=== PATIENT | male | born 1965 | race Caucasian/White ===

== ENCOUNTER 2021-03-29 10:57 | Emergency (ER) | payer BC ==
[~2021-03-29] VITALS: Ht 172.7 cm; Wt 83.9 kg
[2021-03-29] MEDS ORDERED: ELIQUIS5 MG PO (11:30)
[2021-03-29] MEDS ORDERED: CHLORTHALIDONE25 MG PO (11:30)
--- NOTE | 2021-03-31 13:47 | EKG ---
[facility] [address] [facility] [place], [place] [address] Signed Normal sinus rhythm Nonspecific intraventricular conduction delay Borderline ECG No previous ECGs available Confirmed by URMILA PEDERSON DO ([id number]) on 03/31/2021 1:47:28 PM Electronically Signed By: URMILA PEDERSON DO 03/31/21 1347 PATIENT NAME: CATE WATERS Electrocardiogram DATE OF : 63 PHYSICIAN: URMILA PEDERSON DO REPORT #: [id number] REPORT IS CONFIDENTIAL AND NOT TO BE RELEASED WITHOUT AUTHORIZATION
== END 2021-03-29 12:45 | disposition home or self-care (01) ==
LOC: ED 10:57
DX: R10.13 Epigastric pain (principal); H53.9 Unspecified visual disturbance; I10 Essential (primary) hypertension; Z79.899 Other long term (current) drug therapy; Z85.46 Personal history of malignant neoplasm of prostate
CPT/HCPCS: 71046; 80053; 83735; 84484; 85025; 85610; 93005; 93010; 99284-25

== ENCOUNTER 2024-01-08 21:17 | Emergency (ER) | payer BC ==
[~2024-01-08] VITALS: Ht 175.3 cm; Wt 87.5 kg
[~2024-01-08 21:17] MED LIST: CHLORTHALIDONE25 MG PO; ELIQUIS5 MG PO
[2024-01-08] MEDS ORDERED: ASPIRIN 81 MG CHEW PO ONE (21:30)
[2024-01-08] MEDS ORDERED: NITROGLYCERIN 0.4 MG SUBL SL PRN (21:30)
[2024-01-08 21:34] LABS: BASOPHILS 1.2 % (0-2); EOSINOPHILS 2.4 % (0-6); HEMATOCRIT 47.4 % (35.0-50.0); HEMOGLOBIN 16.1 g/dL (12.0-18.0); LYMPHOCYTES 42.6 % (24-44); MCH 31.8 (27-36); MCV 93.4 fl (81-99); MONOCYTES 7.7 % (0-12); NEUTROPHILS 46.1 % (39-80); PLATELET COUNT 261 K/uL (140-440); RBC 5.08 M/ul (4.3-5.7)
[2024-01-08 21:45] LABS: INR 1.03 (0.80-1.30); PROTIME 12.8 Sec (11.2-14.2)
[2024-01-08] MEDS ORDERED: FAMOTIDINE 20 MG/ 2 ML VIAL IV ONE (21:45)
[2024-01-08 21:56] LABS: ALBUMIN/GLOBULIN RATIO 1.03 (1.1-2.4); ALKALINE PHOSPHATASE 38 U/L (46-116); ALT (SGPT) 96 U/L (14-59); ANION GAP 13.6 (7-21); AST (SGOT) 39 U/L (15-37); BILIRUBIN, TOTAL 0.4 ng/dL (0.2-1.0); BUN/CREATININE RATIO 18.85 (6.0-28.6); CARBON DIOXIDE 28 mmol/L (21-32); CHLORIDE 102 mmol/L (98-107); CREATININE, SERUM 1.22 mg/dL (0.70-1.30); GLOMERULAR FILTRATION RATE,EST 68 mL/min (>60); MAGNESIUM 2.1 mg/dL (1.8-2.4); POTASSIUM 3.6 mmol/L (3.5-5.1); PROTEIN, TOTAL 7.9 g/dL (6.4-8.2); UREA NITROGEN 23 mg/dL (7-18)
[2024-01-08] MEDS ORDERED: VALACYCLOVIR1000 MG PO (21:59)
[2024-01-08] MEDS ORDERED: SPIRONOLACTONE100 MG NG (22:00)
[2024-01-08 22:13] LABS: BILIRUBIN, URINE NEGATIVE (negative); BLOOD/HGB, URINE TRACE-I (Negative); KETONE, URINE NEGATIVE (Negative); LEUK ESTERASE, URINE NEGATIVE (negative); NITRITE, URINE NEGATIVE (negative); PH, URINE 5.5 (5-7)
[2024-01-08 22:27] LABS: BACTERIA, URINE NONE SEEN /hpf (negative); CASTS, URINE NONE SEEN \\lpf; COLLECTION TYPE, URINE CLEAN CATCH; CRYSTALS, URINE NONE SEEN (0-1+); EPITHELIAL CELLS, URINE NS /lpf (0-1+); REFLEX CULTURE, URINE No (No); WHITE BLOOD CELLS, URINE 0-1 /HPF (0-5)
[2024-01-08 22:53] LABS: AMPHETAMINES, URINE NEGATIVE (NEGATIVE); BARBITURATES, URINE NEGATIVE (NEGATIVE); BENZODIAZEPINE, URINE NEGATIVE (NEGATIVE); BUPRENORPHINE, URINE NEGATIVE (NEGATIVE); CANNABINOID, URINE NEGATIVE (NEGATIVE); COCAINE, URINE NEGATIVE (NEGATIVE); ECSTASY, URINE NEGATIVE (NEGATIVE); FENTANYL, URINE NEGATIVE (NEGATIVE); METHADONE, URINE NEGATIVE (NEGATIVE); OPIATES, URINE NEGATIVE (NEGATIVE); OXYCODONE, URINE NEGATIVE (NEGATIVE); PHENCYCLIDINE, URINE NEGATIVE (NEGATIVE)
[2024-01-08 23:30] VITALS: BP 138/96
--- NOTE | 2024-01-09 11:18 | EKG ---
[facility] [address] [facility] [place], [place] [address] Signed Sinus rhythm with 1st degree AV block Otherwise normal ECG When compared with ECG of 29-MAR-2021 11:07, No significant change was found Confirmed by MADYSON BOLAND MD ([id number]) on 01/09/2024 11:18:35 AM Electronically Signed By: MADYSON BOLAND 01/09/24 1118 PATIENT NAME: CATE WATERS Electrocardiogram DATE OF : 63 PHYSICIAN: MADYSON BOLAND REPORT #: [id number] REPORT IS CONFIDENTIAL AND NOT TO BE RELEASED WITHOUT AUTHORIZATION
== END 2024-01-08 23:30 | disposition home or self-care (01) ==
LOC: ED 21:17
PROVIDERS: Internal Medicine
DX: K21.9 Gastro-esophageal reflux disease without esophagitis (principal); I10 Essential (primary) hypertension; Z79.01 Long term (current) use of anticoagulants; Z79.899 Other long term (current) drug therapy
CPT/HCPCS: 36415; 71045; 80053; 80307; 81001; 83735; 84484; 85025; 85610; 93005; 93010; 96374; 99285-25; A9270

== ENCOUNTER 2024-05-22 13:08 | Inpatient (IN) | payer BC ==
[~2024-05-22] VITALS: Ht 175.3 cm; Wt 90.6 kg
[~2024-05-22 13:08] MED LIST changes: +SPIRONOLACTONE100 MG NG; +VALACYCLOVIR1000 MG PO
[2024-05-22] MEDS ORDERED: LISINOPRIL10 MG PO (13:26)
[2024-05-22] MEDS ORDERED: SODIUM CHLORIDE 0.9% 500 ML IV PRN (13:30)
[2024-05-22 13:42] LABS: BASOPHILS 0.7 % (0-2); EOSINOPHILS 1.3 % (0-6); HEMATOCRIT 43.4 % (35.0-50.0); HEMOGLOBIN 14.7 g/dL (12.0-18.0); LYMPHOCYTES 23.5 % (24-44); MCH 31.9 (27-36); MCHC 33.9 g/dl (30-36); MCV 94.1 fl (81-99); MONOCYTES 7.6 % (0-12); NEUTROPHILS 66.9 % (39-80); PLATELET COUNT 241 K/uL (140-440); RBC 4.62 M/ul (4.3-5.7); RDW 13.4 (10.5-15.0)
[2024-05-22] MEDS ORDERED: HYDROmorphone HCL 1 MG/ML SYR IV PRN (13:45)
[2024-05-22 13:57] LABS: ALBUMIN/GLOBULIN RATIO 1.25 (1.1-2.4); ANION GAP 10.9 (7-21); BILIRUBIN, TOTAL 0.8 ng/dL (0.2-1.0); BUN/CREATININE RATIO 11.32 (6.0-28.6); CREATININE, SERUM 1.06 mg/dL (0.70-1.30); POTASSIUM 3.9 mmol/L (3.5-5.1); PROTEIN, TOTAL 7.2 g/dL (6.4-8.2)
[2024-05-22 14:00] LABS: BILIRUBIN, URINE NEGATIVE (negative); BLOOD/HGB, URINE NEGATIVE (Negative); KETONE, URINE NEGATIVE (Negative); LEUK ESTERASE, URINE NEGATIVE (negative); NITRITE, URINE NEGATIVE (negative)
[2024-05-22] MEDS ORDERED: SODIUM CHLORIDE 0.9% 50 ML IV PRN (15:45)
[2024-05-22] MEDS ORDERED: HUMAN PROTHROMBIN COMPLX(PCC) 500 UNIT/20 ML VIAL IV ONE (15:45)
[2024-05-22] MEDS ORDERED: DEXTROSE 5% 100 ML IV ONE (15:58)
[2024-05-22] MEDS ORDERED: FAMOTIDINE 20 MG/ 2 ML VIAL IV ONE (16:00)
[2024-05-22] MEDS ORDERED: LACTATED RINGER'S 1,000 ML IV SCH (16:00)
[2024-05-22] MEDS ORDERED: PIPERACILLIN/TAZOBACTAM 3.375 GM in DEXTROSE 5% 100 ML IV SCH (16:00)
[2024-05-22] MEDS ORDERED: fentaNYL citrate 100 MCG/2 ML VIAL ONE (16:26)
[2024-05-22] MEDS ORDERED: KETAMINE in NS 50 MG/5 ML SYR ONE (16:26)
[2024-05-22] MEDS ORDERED: MIDAZOLAM HCL 2 MG/2 ML VIAL ONE (16:26)
[2024-05-22] MEDS ORDERED: LIDOCAINE HCL 2% 5 ML SDV ONE (16:27)
[2024-05-22] MEDS ORDERED: dexmedeTOMIDine HCl 200 MCG/2 ML VIAL ONE (16:27)
[2024-05-22] MEDS ORDERED: ROCURONIUM BROMIDE 50 MG/5 ML SYR ONE ×2 (16:27→17:02)
[2024-05-22] MEDS ORDERED: propofoL 200 MG/20 ML VIAL ONE (16:27)
[2024-05-22] MEDS ORDERED: ACETAMINOPHEN 1,000 MG/100 ML VIAL ONE (16:27)
[2024-05-22] MEDS ORDERED: MAGNESIUM SULFATE 1 GM/2 ML VIAL ONE (16:27)
[2024-05-22] MEDS ORDERED: SODIUM CHLORIDE 0.9% 40 ML IV ONE ×2 (16:27→17:59)
[2024-05-22] MEDS ORDERED: DEXAMETHASONE SOD PHOS 4 MG/ML VIAL ONE ×2 (16:27→17:59)
[2024-05-22] MEDS ORDERED: ondansetron HCL 4 MG/2 ML VIAL ONE (16:27)
[2024-05-22] MEDS ORDERED: SUCCINYLCHOLINE IN 0.9% NACL 200 MG/10 ML SYRINGE ONE (16:39)
[2024-05-22] MEDS ORDERED: ePHEDrine sulfate 50 MG/ML AMP ONE (17:34)
[2024-05-22] MEDS ORDERED: Ropivacaine HCl 0.5% 30 ML VIAL ONE (17:59)
[2024-05-22] MEDS ORDERED: SODIUM CHLORIDE 0.9% 20 ML IV ONE (18:04)
[2024-05-22] MEDS ORDERED: KETOROLAC TROMETHAMINE 30 MG/ML VIAL IV PRN ×2 (18:15→19:15)
[2024-05-22] MEDS ORDERED: IBLOOD GLUCOSE TEST STRIP 1 EA TEST VI PRN (18:15)
[2024-05-22] MEDS ORDERED: ondansetron HCL 4 MG/2 ML VIAL IV PRN (18:15)
[2024-05-22] MEDS ORDERED: droPERidol 5 MG/2 ML VIAL IV PRN (18:15)
[2024-05-22] MEDS ORDERED: NALOXONE HCL 0.4 MG SYR IV PRN (18:15)
[2024-05-22] MEDS ORDERED: fentaNYL citrate 50 MCG/ML SDV IV PRN (18:15)
[2024-05-22] MEDS ORDERED: ACETAMINOPHEN 1,000 MG/100 ML VIAL IV PRN (19:15)
[2024-05-22] MEDS ORDERED: HEParin SOD (PORCINE) 5,000 UNIT/0.5 ML SYR SUB-Q SCH (19:15)
[2024-05-22 19:58] VITALS: BP 127/78
[2024-05-22] MEDS ORDERED: FAMOTIDINE 20 MG/ 2 ML VIAL IV SCH ×2 (21:00)
[2024-05-22 21:03] VITALS: BP 124/82
[2024-05-22 22:04] VITALS: BP 113/77
[2024-05-22 22:05] VITALS: BP 113/77
[2024-05-22 23:09] VITALS: BP 111/70
[2024-05-23] VITALS (9 sets, daily range): BP systolic 107–127; BP diastolic 65–82
[2024-05-23] MEDS ORDERED: PIPERACILLIN/TAZOBACTAM 3.375 GM in DEXTROSE 5% 100 ML IV SCH
[2024-05-23 05:52] LABS: BASOPHILS 0.2 % (0-2); HEMATOCRIT 42.6 % (35.0-50.0); HEMOGLOBIN 14.2 g/dL (12.0-18.0); LYMPHOCYTES 4.6 % (24-44); MCH 31.6 (27-36); MCHC 33.5 g/dl (30-36); MCV 94.5 fl (81-99); NEUTROPHILS 92.2 % (39-80); PLATELET COUNT 236 K/uL (140-440); RDW 13.2 (10.5-15.0)
[2024-05-23] MEDS ORDERED: HEParin SOD (PORCINE) 5,000 UNIT/0.5 ML SYR SUB-Q SCH (06:00)
[2024-05-23 06:09] LABS: ALBUMIN 3.2 g/dL (3.4-5.0); ALBUMIN/GLOBULIN RATIO 1.07 (1.1-2.4); ANION GAP 11.1 (7-21); BILIRUBIN, TOTAL 0.9 ng/dL (0.2-1.0); BUN/CREATININE RATIO 11.21 (6.0-28.6); CREATININE, SERUM 1.07 mg/dL (0.70-1.30); POTASSIUM 4.1 mmol/L (3.5-5.1); PROTEIN, TOTAL 6.2 g/dL (6.4-8.2)
--- NOTE | 2024-05-23 13:04 | OR ---
[facility] [address] [place], [place] [address] Signed DATE OF OPERATION: 05/22/2024 SURGEON: Le Chaparro MD PREOPERATIVE DIAGNOSES: 1. Closed loop small-bowel obstruction. 2. Longstanding hyperthrombotic state, chronic anticoagulation with Eliquis. POSTOPERATIVE DIAGNOSIS: Acute segmental enteric serositis without sign of bowel obstruction. PROCEDURE: Laparotomy with decompression of small bowel, irrigation of the abdomen, exploration of abdominal contents. ANESTHESIA: General endotracheal, Darinel Ferrera, CORPORATE TECHNICAL RECRUITER and postoperative bilateral TAP blocks. 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 At approximately 6:00 a.m., he had severe and sudden onset of abdominal pain in the right mid abdomen. He had a sense of vomiting, would relieve the symptoms, but nothing actually did and on that basis, he presented to the emergency room at approximately 1:30 p.m. He was noted to have tenderness in the right abdomen, but pain out of proportion to the exam otherwise. 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 Thrombophilic state has never been well characterized, though thoroughly evaluated at [facility]. He previously was on Coumadin anticoagulation and more recently taking Eliquis under the direction of his primary physician locally, Dr. Vital. Evaluation by Dr. Wolf showed him to have a normal urinalysis, CBC and Chem-20, but a CT scan performed showed a dilated segment of small-bowel with decompression proximally and distally and highly suggestive of closed-loop obstruction. Quite notable was the fact he has never had a laparotomy or other intra-abdominal intervention. The patient does have a history of prostate cancer for which he underwent neutron therapy as well as a history of orthopedic surgery, but no abdominal interventions otherwise. He has been reversed in his anticoagulant effect of Eliquis with Kcentra, fluid resuscitated, given intravenous antibiotics and now to undergo a laparotomy and remedy of the presumed closed-loop obstruction. He understands as does his family the risk of bleeding, infection, failure of diagnosis, misdiagnosis, need for bowel resection, need for other Electronically Signed By: LE CHAPARRO MD 05/23/24 1304 PATIENT NAME: CATE WATERS OPERATIVE REPORT DATE OF : 63 REPORT #: [id number] PHYSICIAN: LE CHAPARRO MD PCP: UMA VITAL MD REPORT IS CONFIDENTIAL AND NOT TO BE RELEASED WITHOUT AUTHORIZATION [facility] [address] [place], [place] [address] Signed indicated procedures. He understands he wished to proceed. FINDINGS: There was no sign of closed-loop obstruction. There was definitely a segment of small-bowel that was dilated, inflamed and at first thought to be possibly ischemic, however, this proved unlikely to be the case. It was certainly viable and had preserved motility with stimulation. Proximal and distal to this dilated segment of ileum ( which measured at least 24 inches) was completely decompressed. The terminal ileum was normal. There was no evidence of creeping fat. The segment in question did have inflammatory changes and a dark fluid within the lumen of the bowel. The fluid was milked proximally and distally, which allowed more normal appearance of the bowel and although that segment was inflamed, was not ischemic, particularly appeared quite viable. On that basis, no resection was undertaken. The appendix was identified as was in a retrocecal position, not inflamed, quite small and atretic and the liver and gallbladder were palpably and visibly normal. The underlying diagnosis would be best characterized as acute segemental enteric serositis without sign of obstruction. There was no clear sign of mesenteric ischemia or venous thrombosis. DESCRIPTION OF PROCEDURE: The patient was brought to the operating room, given a general endotracheal anesthetic. An orogastric tube was placed, draining approximately 500 mL of relatively clear fluid from the stomach. A Guillen catheter was placed. The abdomen was clipped and prepared with a chlorhexidine solution and draped sterilely. Palpation prior to incision revealed no palpable mass. An incision was made cephalad to the umbilicus and extended inferiorly a short distance. The abdomen was entered without problem after transecting the subcutaneous tissue and fascia with electrocautery. Good hemostasis was noted. Upon entering to the abdomen, there were two distinct colors of small-bowel, more dilated bowel with a somewhat bluish inflamed appearance and the completely decompressed bowel romero pink in color. Concern was made this may represent ischemic change. The small-bowel was manipulated and extracted from the abdomen and found to have no actual obstructing adhesive band, transmesenteric defect or anything to suggest an internal obstruction or closed-loop obstruction proper. The terminal ileum was easily identified by the antimesenteric fat pad of Treves. The small-bowel attendant to it at least 1.5 feet was completely normal and totally decompressed. Transition point from dilated bowel to the segment of ileum described had a relatively subtle transition to a more dilated and inflamed segment of bowel and again had a somewhat bluish hue to it. The color appeared more directly related to bowel content than the wall of the bowel itself. Electronically Signed By: LE CHAPARRO MD 05/23/24 1301 PATIENT NAME: CATE WATERS OPERATIVE REPORT DATE OF : 63 REPORT #: [id number] PHYSICIAN: LE CHAPARRO MD PCP: UMA VITAL MD REPORT IS CONFIDENTIAL AND NOT TO BE RELEASED WITHOUT AUTHORIZATION [facility] [address] [place], [place] [address] Signed Concern was maintained for possible ischemic bowel disease including mesenteric thrombosis, whether venous or arterial. The mesentery was fatty and appeared to be viable and there appeared to be a palpable pulse within it. The bowel was manipulated more proximally and segment was dilated with the bluish hue was approximately 2.5 feet long. Proximal to this was what appeared to be decompressed bowel as well, pink in character and not particularly inflamed. The small-bowel was marked from the ligament of Treitz to the beginning of the area of dilation and inflammation and the distal segment somewhat marked with the anti-mesenteric silk stitch. The bulky area that was inflamed and with fluid, which appeared to be dark itself was milked in a retrograde fashion and subsequently in antegrade fashion into the colon itself. At that point, complete decompression of the bowel was accomplished. The bowel now looked relatively good. The area in question now decompressed and although inflamed, quite viable. Manual manipulation of the bowel showed preserved peristalsis in all segments of the bowel. The mesentery was carefully examined and there was no sign of adenopathy. No sign of inflammation or creeping fat in the edges of the bowel. Mesentery was somewhat fatty, but there was no evidence of ischemic change elsewhere. The colon was normal so far as could be told. The liver was normal. Gallbladder was visualized as normal. The stomach was normal and the omentum was normal. Irrigation with warm saline was copiously undertaken throughout the abdominal cavity and the bowel once again manipulated from the ligament of Trietz to the terminal ileum showing viability and only the specific offending segment with some inflammatory change. A nasogastric tube was later manipulated into the stomach and left in situ for decompression postoperatively. After copious irrigation of the abdomen 3 L of warm saline plans were made for closure. The small-bowel was returned to its normal anatomic postition as much as possible and the omentum replaced over it. Excess irrigation fluid was suctioned free. The midline fascia was reapproximated with running bidirectional #1 PDS suture and bilateral TAP blocks administered by the program mgr for postoperative analgesic benefit. He was ultimately extubated and transported to recovery room in good condition, having suffered no known complications. Sponge, needle, and instrument counts were reported as correct x3. Blood loss was less than 25 cc. Le Chaparro MD /MODL Electronically Signed By: LE CHAPARRO MD 05/23/24 1304 PATIENT NAME: CATE WATERS OPERATIVE REPORT DATE OF : 63 REPORT #: [id number] PHYSICIAN: LE CHAPARRO MD PCP: UMA VITAL MD REPORT IS CONFIDENTIAL AND NOT TO BE RELEASED WITHOUT AUTHORIZATION [address] [address] Signed /[id number] cc: LACHELLE WOLF MD [facility] Uma Vital MD Copies: ~ Electronically Signed By: LE CHAPARRO MD 05/23/24 1304 PATIENT NAME: CATE WATERS OPERATIVE REPORT DATE OF : 63 REPORT #: [id number] PHYSICIAN: LE CHAPARRO MD PCP: UMA VITAL MD REPORT IS CONFIDENTIAL AND NOT TO BE RELEASED WITHOUT AUTHORIZATION
[2024-05-23] MEDS ORDERED: ENOXAPARIN SODIUM 100 MG/ML SYR SUB-Q SCH (13:30)
--- NOTE | 2024-05-23 13:39 | HP ---
[facility] [address] [place], [place] [address] Signed ADMISSION DATE: 05/22/2024 REASON FOR ADMISSION: Closed-loop obstruction of small bowel. HISTORY OF PRESENT ILLNESS: This 58-year-old white man is a patient of Dr. Vital. He presented to the emergency room and was evaluated thoroughly by Dr. Wolf for sharp mid abdominal pain. The patient's pain began approximately 06:00 a.m. today. It was sudden, sharp and quite severe overall. He did not improve over the day with attempted eating and so on. Evaluation by Dr. Wolf included a CT scan of the abdomen, which showed findings highly suggestive of a closed-loop obstruction of the bowel. It is notable that he has never had intraabdominal surgery of any sort. He has had no hernia or other issues. Interpretation and review shows two transition points with proximal bowel dilation in the segment between the areas of transition suggestive of a closed-loop obstruction. The patient has some diverticula without diverticulitis and a normal appearing appendix is noted. He has no ascites or free air. The gallbladder is normal. LABORATORY DATA: His lab studies were noted to be normal with white count of 6.7, hematocrit of 43.4, and platelets are normal, 241,000. Chem profile is normal as well. Creatinine is 1.06, ALT 65, alkaline phosphatase 41, and lipase 45. Urinalysis is essentially normal. PAST MEDICAL HISTORY: 1. Notable for prostate cancer, for which he was treated with neutron radiation therapy at [facility] several years ago. He maintains a normal PSA at this time and has no urinary symptoms currently. 2. Has a history of multiple deep venous thromboses and at least one pulmonary embolus, ultimately found to have no named coagulopathic entity, but consider hypercoagulable nonetheless. On that basis, he is anticoagulated with Eliquis under the direction of Dr. Vital. He has seen gunite nozzle operator at [facility] in the distant past for this. Previously was on warfarin. 3. He has had no recent signs or symptoms of deep venous thrombosis or pulmonary embolism is noted. SOCIAL HISTORY: He is . He is accompanied by his mother, Tatiana. 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 REVIEW OF SYSTEMS: He denies any shortness of breath or chest pain. Has no leg swelling or pain in the Electronically Signed By: LE CHAPARRO MD 05/23/24 1339 PATIENT NAME: CATE WATERS HISTORY AND PHYSICAL DATE OF : 63 REPORT #: [id number] PHYSICIAN: LE CHAPARRO MD PCP: PATRICIA VITAL MD REPORT IS CONFIDENTIAL AND NOT TO BE RELEASED WITHOUT AUTHORIZATION [facility] [address] [place], [place] [address] Signed legs. His pain is dominantly in the right mid abdomen. He has no vomiting currently. PHYSICAL EXAMINATION: GENERAL: Pleasant white man, who does not look systemically toxic, though he is uncomfortable. He is accompanied by his as well as Raji Hutton, a family friend. VITAL SIGNS: Height is 5 feet 9 inches, weight is 86.7 kg. His BMI is 28.2. HEENT: Mucous membranes are moist around the edges. He does have an IV currently running. Trachea is midline. CHEST: Clear. HEART: Regular without murmur. ABDOMEN: Nondistended and generally soft, though there is tenderness in the right mid abdomen. EXTREMITIES: Show no clubbing, cyanosis, or edema. There are no stigmata of deep venous thrombosis currently. LABORATORY DATA: Urinalysis is normal. Hematology, lab test at 01:30 p.m. showed a white count of 6.7, hematocrit 43.4, and platelets are 241,000. Chem profile is normal. Creatinine 1.06, ALT 65, alkaline phosphatase 41, lipase 45. IMAGING DATA: I have reviewed the images in detail, specifically the CT scan, which shows some completely decompressed area of the small bowel and others with dilation consistent with obstruction. Stomach is somewhat dilated dominantly with air. No evidence of ischemic change of the small bowel. The segment of mid small bowel that has dilated loops with some fluid. ASSESSMENT: The patient does have what appears to be a closed-loop obstruction. This is quite unusual considering he has had no intraabdominal intervention in the past. This could be software support representative of a trans mesenteric hernia. A strand of adhesions from radiation therapy in the past (unlikely) or could be a factitious finding altogether. Considering his symptoms are unrelenting and exam on CT scan. I would recommend exploration of the abdomen and remedy of the problem. This may be as simple as lysis of adhesions and detorsion of bowel or as complex as requiring bowel resection. The possibility of a thrombotic phenomenon is acknowledged given his history of a thrombophilic state, but he has been completely compliant regarding his eliquis use . Complicating his current situation of course is his chronic anticoagulation with Eliquis. A Kcentra based reversal approach would be most appropriate in our current situation. Waiting two days for the Eliquis (last dosed this morning) would be Electronically Signed By: LE CHAPARRO MD 05/23/24 1339 PATIENT NAME: CATE WATERS HISTORY AND PHYSICAL DATE OF : 63 REPORT #: [id number] PHYSICIAN: LE CHAPARRO MD PCP: PATRICIA VITAL MD REPORT IS CONFIDENTIAL AND NOT TO BE RELEASED WITHOUT AUTHORIZATION [address] [place], [place] [address] Signed unacceptable on the basis of probable intestinal demise for closed-loop obstruction generally speaking. I discussed the risks and benefits of exploration operation with him and his in detail. They understand and wished to proceed. We will provide as much protection against thrombosis as we can with sequential compression device stockings and perioperative Lovenox anticipating return to his anticoagulation scheme and the earliest possible opportunity. MD LEAH Valentin/GARO /[id number] cc: MD Patricia Alcantar MD Copies: LACHELLE WOLF MD ~ Electronically Signed By: LE CHAPARRO MD 05/23/24 1339 PATIENT NAME: CATE WATERS HISTORY AND PHYSICAL DATE OF : 63 REPORT #: [id number] PHYSICIAN: LE CHAPARRO MD PCP: PATRICIA VITAL MD REPORT IS CONFIDENTIAL AND NOT TO BE RELEASED WITHOUT AUTHORIZATION
[2024-05-23] MEDS ORDERED: KETOROLAC TROMETHAMINE 15 MG/ML VIAL IV PRN (13:45)
[2024-05-23] MEDS ORDERED: LISINOPRIL20 MG PO (14:54)
[2024-05-23] MEDS ORDERED: LACTATED RINGER'S 1,000 ML IV SCH (21:00)
[2024-05-23] MEDS ORDERED: ACETAMINOPHEN 1,000 MG/100 ML VIAL IV PRN (21:00)
[2024-05-24] VITALS (7 sets, daily range): BP systolic 125–146; BP diastolic 75–94
--- NOTE | 2024-05-24 07:41 | EKG ---
[facility] [address] [facility] [place], [place] [address] Signed Sinus rhythm with 1st degree AV block Otherwise normal ECG When compared with ECG of 08-JAN-2024 21:20, No significant change was found Confirmed by Jung Willson MD ([id number]) on 05/24/2024 7:41:11 AM Electronically Signed By: JUNG WILLSON 05/24/24 0741 PATIENT NAME: CATE WATERS Electrocardiogram DATE OF : 63 PHYSICIAN: JUNG WILLSON REPORT #: [id number] REPORT IS CONFIDENTIAL AND NOT TO BE RELEASED WITHOUT AUTHORIZATION
[2024-05-24] MEDS ORDERED: ondansetron HCL 4 MG/2 ML VIAL IV PRN (17:45)
[2024-05-24] MEDS ORDERED: ACETAMINOPHEN 500 MG TAB PO PRN (18:00)
[2024-05-24] MEDS ORDERED: APIXABAN 5 MG TAB PO SCH (21:00)
[2024-05-25] VITALS (8 sets, daily range): BP systolic 127–157; BP diastolic 80–88
[2024-05-25 14:11] LABS: BASOPHILS 0.5 % (0-2); EOSINOPHILS 0.9 % (0-6); HEMATOCRIT 42.3 % (35.0-50.0); HEMOGLOBIN 14.4 g/dL (12.0-18.0); LYMPHOCYTES 15.3 % (24-44); MCH 32.2 (27-36); MCHC 34.2 g/dl (30-36); MCV 94.4 fl (81-99); MONOCYTES 6.3 % (0-12); PLATELET COUNT 245 K/uL (140-440); RBC 4.48 M/ul (4.3-5.7); RDW 13.3 (10.5-15.0)
[2024-05-25 14:18] LABS: ANION GAP 12.1 (7-21); BUN/CREATININE RATIO 13.33 (6.0-28.6); CALCIUM 8.7 mg/dL (8.5-10.1); CREATININE, SERUM 1.05 mg/dL (0.70-1.30); MAGNESIUM 1.8 mg/dL (1.8-2.4); POTASSIUM 4.1 mmol/L (3.5-5.1)
[2024-05-26 04:37] VITALS: BP 141/86
[2024-05-26 09:17] VITALS: BP 143/85
[2024-05-26] MEDS ORDERED: KETOROLAC TROMETHAMINE 15 MG/ML VIAL IV PRN (09:30)
[2024-05-26] MEDS ORDERED: DOCUSATE SODIUM 100 MG CAP PO SCH (11:17)
[2024-05-26 13:56] VITALS: BP 143/83
[2024-05-26 18:06] VITALS: BP 151/88
[2024-05-26 21:44] VITALS: BP 156/96
[2024-05-26 22:40] VITALS: BP 156/96
[2024-05-27 04:59] VITALS: BP 149/83
[2024-05-27 09:03] VITALS: BP 144/90
[2024-05-27 13:12] VITALS: BP 154/90
[2024-05-27 18:21] VITALS: BP 144/86
[2024-05-27] MEDS ORDERED: LACTATED RINGER'S 500 ML IV SCH (21:00)
[2024-05-27 21:07] VITALS: BP 144/88
[2024-05-28] VITALS (7 sets, daily range): BP systolic 131–144; BP diastolic 82–89
[2024-05-29 05:51] VITALS: BP 115/74
[2024-05-29 09:34] VITALS: BP 127/81
[2024-05-29 10:05] VITALS: BP 127/81
[2024-05-29 11:20] VITALS: BP 127/82
[2024-05-29 11:33] VITALS: BP 127/82
== END 2024-05-29 11:22 | disposition home or self-care (01) | DRG 336 ==
LOC: ED 13:08 → MS 15:57
PROVIDERS: Emergency Medicine; ADMIT Surgery; ATTEND Transplant Surgery
PROC: 30283B1 Transfusion of Nonautologous 4-Factor Prothrombin Complex Concentrate into Vein, Percutaneous Approach (ICD-10-PCS; 2024-05-22)
PROC: 0DN80ZZ Release Small Intestine, Open Approach (ICD-10-PCS; principal; 2024-05-22 16:30)
DX: K52.89 Other specified noninfective gastroenteritis and colitis (principal); D68.59 Other primary thrombophilia; Z85.46 Personal history of malignant neoplasm of prostate; I10 Essential (primary) hypertension; Z79.01 Long term (current) use of anticoagulants; Z92.3 Personal history of irradiation; Z86.718 Personal history of other venous thrombosis and embolism; Z86.711 Personal history of pulmonary embolism
CPT/HCPCS: 00790; 36415; 71045; 74177; 76942; 80048; 80053; 81003; 83605; 83690; 83735; 85025; 93005; 93010; A9270; J0131; J0330; J1100; J1170; J1644; J1650; J1885; J2001; J2250; J2405; J2543; J2704; J2795; J3010; J3475; J3490; J7040; J7121; J7168; Q9967